=== PATIENT | female | born 1940 | race Caucasian/White ===

== ENCOUNTER → 2016-12-20 | Outpatient (CLI) | payer MEDICARE, OTHER ==
[~2016-12-20] MED LIST: None at this Time
[2016-12-20 16:45] LABS: HEMATOCRIT 48.2 % (34.6-47.8); WHITE BLOOD COUNT 7.7 x10^3/uL (3.4-10)
[2016-12-20 17:05] LABS: ASPARTATE AMINO TRANSFERASE 16 U/L (15-37); BLOOD UREA NITROGEN 17 mg/dL (7-18); HIV 1&2 ANTIBODY SCREEN Nonreactive (Nonreactive); HIV-1 p24 ANTIGEN Nonreactive (Nonreactive)
== END | disposition home or self-care (01) ==
LOC: STAR 14:52
PROVIDERS: ATTEND Orthopaedic Surgery
DX: Z01.818 Encounter for other preprocedural examination (principal); R94.31 Abnormal electrocardiogram [ECG] [EKG]; R79.1 Abnormal coagulation profile; R79.89 Other specified abnormal findings of blood chemistry
CPT/HCPCS: 36415; 80053; 83036; 85025; 85610; 85730; 86703; 87081; 87899; 93005; G0435

== ENCOUNTER 2016-12-27 05:26 | Inpatient (IN) | payer MEDICARE, OTHER ==
[~2016-12-27] VITALS: Ht 154.9 cm; Wt 73.3 kg
[2016-12-27] MEDS ORDERED: VANCOMYCIN PER PHARMACY MC STA (06:12)
[2016-12-27] MEDS ORDERED: LACTATED RINGERS 1,000 ML IV SCH (06:12)
[2016-12-27] MEDS ORDERED: VANCOMYCIN 1,400 MG in SODIUM CHLORIDE 0.9% 250 ML IV ONE (06:30)
[2016-12-27] MEDS ORDERED: PHARMACOKINETIC CONSULTATION MC ONE ×2 (06:30→19:30)
[2016-12-27 06:37] VITALS: BP 158/97
[2016-12-27] MEDS ORDERED: TRANEXAMIC ACID 100 MG/ML, 10ML ONE ×4 (06:48)
[2016-12-27] MEDS ORDERED: KETOROLAC 60 MG/2 ML ONE (06:48)
[2016-12-27] MEDS ORDERED: ROPIvacaine/PF 0.2%, 20 ML ONE (06:49)
[2016-12-27] MEDS ORDERED: MIDAZOLAM 1 MG/ML, 2ML ONE (06:49)
[2016-12-27] MEDS ORDERED: FENTANYL PF 100 MCG/2ML ONE ×2 (06:49)
[2016-12-27] MEDS ORDERED: SODIUM CHLORIDE 0.9% 50 ML ONE (06:50)
[2016-12-27] MEDS ORDERED: EPINEPHRINE 1 MG/ML, 1ML ONE (06:50)
[2016-12-27] MEDS ORDERED: GABAPENTIN 300 MG CAPSULE PO ONE (07:00)
[2016-12-27] MEDS ORDERED: ACETAMINOPHEN 500 MG TABLET PO ONE (07:00)
[2016-12-27] MEDS ORDERED: DEXAMETHASONE 4 MG/ML, 1ML ONE (07:20)
[2016-12-27] MEDS ORDERED: CEFAZOLIN 1,000 MG ONE (07:20)
[2016-12-27] MEDS ORDERED: ONDANSETRON 2MG/ML, 2ML ONE (07:20)
[2016-12-27] MEDS ORDERED: PROPOFOL 10 MG/ML, 20ML ONE (07:20)
[2016-12-27] MEDS ORDERED: SCOPOLAMINE PATCH, 1.5MG PATCH.TD72 TD SCH (07:30)
[2016-12-27] MEDS ORDERED: MAGNESIUM HYDROXIDE 8%, 30ML UDC PO PRN (07:30)
[2016-12-27] MEDS ORDERED: ALUMINUM/MAG/SIMETHICONE 30 ML UDC PO PRN (07:30)
[2016-12-27] MEDS ORDERED: DIAZEPAM 5 MG TABLET PO PRN (07:30)
[2016-12-27] MEDS ORDERED: HYDROmorphone 1 MG/ML, 1ML IV PRN ×2 (07:30→08:30)
[2016-12-27] MEDS ORDERED: ONDANSETRON 4 MG TABLET PO PRN (07:30)
[2016-12-27] MEDS ORDERED: SENNA/DOCUSATE TABLET PO PRN (07:30)
[2016-12-27] MEDS ORDERED: ONDANSETRON 2MG/ML, 2ML IV PRN (07:30)
[2016-12-27] MEDS ORDERED: BISACODYL 10 MG SUPP PR PRN (07:30)
[2016-12-27] MEDS ORDERED: MIDAZOLAM 1 MG/ML, 2ML IV PRN (08:30)
[2016-12-27] MEDS ORDERED: ALBUTEROL SULFATE 2.5 MG/3 ML NPPB PRN (08:30)
[2016-12-27] MEDS ORDERED: EPHEDRINE 50 MG/ML, 1ML IVPush PRN (08:30)
[2016-12-27] MEDS ORDERED: ONDANSETRON 2MG/ML, 2ML IVPush PRN (08:30)
[2016-12-27] MEDS ORDERED: DIAZEPAM 5 MG/ML, 2ML IVPush PRN (08:30)
[2016-12-27] MEDS ORDERED: hydrALAzine 20 MG/ML, 1ML IV PRN (08:30)
[2016-12-27] MEDS ORDERED: LABETALOL 5MG/ML, 20ML IV PRN (08:30)
[2016-12-27] MEDS ORDERED: PROMETHAZINE 25 MG/ML, 1ML IV PRN (08:30)
[2016-12-27] MEDS ORDERED: OXYcodone 5 MG/5 ML ORAL.SOL UDC PO PRN (08:30)
[2016-12-27] MEDS ORDERED: METOPROLOL 1 MG/ML, 5ML IV PRN (08:30)
[2016-12-27] MEDS ORDERED: HYDROcodone/APAP 7.5-325MG/15ML UDC PO PRN (08:30)
[2016-12-27] MEDS ORDERED: MEPERIDINE/PF 25MG/0.5ML IVPush PRN (08:30)
[2016-12-27] MEDS ORDERED: FENTANYL PF 100 MCG/2ML IV PRN (08:30)
[2016-12-27] MEDS ORDERED: HYDROcodone/APAP 7.5-325MG/15ML UDC ONE (10:02)
[2016-12-27] MEDS: D5%-0.45NACL+KCL 20MEQ 1,000 ML IV SCH ×2 (11:39→21:45)
[2016-12-27] MEDS: DOCUSATE 100 MG CAPSULE PO SCH ×2 (11:39→20:47)
[2016-12-27 14:48] VITALS: BP 98/62
[2016-12-27] MEDS: CEFAZOLIN PMX 1GM/50ML 50 ML IVPB SCH (16:14)
[2016-12-27] MEDS: ASPIRIN 81 MG TABLET EC PO SCH (18:24)
[2016-12-27] MEDS ORDERED: VANCOMYCIN PER PHARMACY MC PRN (19:30)
[2016-12-27] MEDS ORDERED: PHARMACOKINETIC MONITORING MC PRN (19:30)
[2016-12-27] MEDS ORDERED: VANCOMYCIN 1,200 MG in SODIUM CHLORIDE 0.9% 250 ML IV SCH (20:00)
[2016-12-27 20:20] VITALS: BP 128/77
[2016-12-27 23:50] VITALS: BP 93/53
[2016-12-28] MEDS: CEFAZOLIN PMX 1GM/50ML 50 ML IVPB SCH (00:04)
[2016-12-28 03:40] VITALS: BP 96/49
[2016-12-28] MEDS ORDERED: ACETAMINOPHEN 325 MG TABLET ONE (03:48)
[2016-12-28] MEDS: OXYcodone IR 5MG TABLET PO PRN ×3 (03:49→13:14)
[2016-12-28] MEDS: ACETAMINOPHEN 650 MG/20.3 ML UDC PO PRN ×2 (03:50→13:13)
[2016-12-28 05:19] LABS: HEMATOCRIT 32.1 % (34.6-47.8); HEMOGLOBIN 10.8 g/dL (11.7-16.4)
[2016-12-28 05:27] LABS: BLOOD UREA NITROGEN 15 mg/dL (7-18)
[2016-12-28] MEDS: ASPIRIN 81 MG TABLET EC PO SCH (05:28)
[2016-12-28] MEDS ORDERED: DEXAMETHASONE 4 MG/ML, 1ML IVPush SCH (06:00)
[2016-12-28] MEDS ORDERED: KETOROLAC 30 MG/1 ML IV SCH (07:30)
[2016-12-28] MEDS: D5%-0.45NACL+KCL 20MEQ 1,000 ML IV SCH (07:45)
[2016-12-28] MEDS ORDERED: VANCOMYCIN 1,200 MG in SODIUM CHLORIDE 0.9% 250 ML IV SCH (08:00)
[2016-12-28] MEDS: DOCUSATE 100 MG CAPSULE PO SCH (08:17)
[2016-12-28 08:32] VITALS: BP 102/58
[2016-12-28] MEDS ORDERED: DOCU-131 PO (10:14)
[2016-12-28] MEDS ORDERED: ASPI-621 PO (10:14)
[2016-12-28] MEDS ORDERED: ONDA4TAB7 PO (10:15)
[2016-12-28] MEDS ORDERED: TRAM50TA2 PO (10:16)
[2016-12-28] MEDS ORDERED: CELE200C PO (10:16)
[2016-12-28 13:49] VITALS: BP 106/60
[2016-12-28] MEDS ORDERED: OXYC5CAP2 PO (14:21)
[2016-12-28] MEDS ORDERED: DIAZ5TAB PO (14:22)
== END 2016-12-28 14:42 | disposition home or self-care (01) | DRG 470 ==
LOC: ORIP 05:26 → 4NOR 10:54 → DCLOUNGE 12-28 14:16 → 4NOR 12-28 14:17 → DCLOUNGE 12-28 14:18
PROVIDERS: ADMIT Orthopaedic Surgery; ATTEND Orthopaedic Surgery
PROC: 0SR90J9 Replacement of Right Hip Joint with Synthetic Substitute, Cemented, Open Approach (ICD-10-PCS; principal; 2016-12-27 07:30)
DX: M16.11 Unilateral primary osteoarthritis, right hip (principal)
CPT/HCPCS: 36415; 72170; 82565; 84520; 85014; 85018; 86850; 86900; C1713; J0171; J0690; J1100; J1885; J2250; J2405; J2704; J2795; J3010; J3370; C1776; J3480; J7050; J7120